=== PATIENT | female | born 1960 | race American Indian/Alaskan Native ===

== ENCOUNTER 2017-05-22 22:15 | Inpatient (IN) | payer OTHER ==
[2017-05-22 23:23] LABS: Basophils % (Auto) 0.3 % (0.0-1.8); Eosinophils % (Auto) 0.4 % (0.0-4.3); Hematocrit 34.5 % (30.3-42.9); Hemoglobin 11.7 gm/dl (10.1-14.3); Mean Corpuscular HGB Conc 34 % (30-34); Mean Corpuscular Hemoglobin 32 pg (28-32); Mean Corpuscular Volume 94 fl (79-97); Platelet Count 239 K/mm3 (140-440); Red Blood Count 3.68 M/mm3 (3.65-5.03); Red Cell Distribution Width 13.2 % (13.2-15.2); White Blood Count 7.6 K/mm3 (4.5-11.0)
[2017-05-22 23:31] LABS: Alanine Aminotransferase 10 units/L (7-56); Albumin 4.2 g/dL (3.9-5); Albumin/Globulin Ratio 1.1 %; Alkaline Phosphatase 86 units/L (35-129); Anion Gap 22 mmol/L; Blood Urea Nitrogen 12 mg/dL (7-17); Calcium 9.3 mg/dL (8.4-10.2); Carbon Dioxide 21 mmol/L (22-30); Chloride 100.9 mmol/L (98-107); Glucose 195 mg/dL (65-100); Lipase 10 units/L (13-60); Potassium 3.9 mmol/L (3.6-5.0); Sodium 140 mmol/L (137-145); Total Protein 8.1 g/dL (6.3-8.2)
[2017-05-22] MEDS ORDERED: NORCO 5/325 PO ONE (23:58)
[2017-05-23 01:16] LABS: Bacteria,Urine 1+ /HPF (Negative); Bilirubin,Urine NEG (Negative); Blood,Urine NEG (Negative); Ketones,Urine 20 mg/dL (Negative); Leukocyte Esterase,Urine NEG (Negative); Mucus,Urine FEW /HPF; Nitrite,Urine NEG (Negative)
[2017-05-23] MEDS ORDERED: NACL ONE (08:01)
[2017-05-23] MEDS ORDERED: NACL 0.9% 1000 ML 1,000 ML IV ONE (09:02)
[2017-05-23] MEDS ORDERED: ZOSYN/NS 4.5GM/100ML 4.5 GM/100 ML VIAL IV ONE (09:02)
[2017-05-23] MEDS ORDERED: ZOFRAN IV ONE (09:02)
[2017-05-23] MEDS ORDERED: DILAUDID IV ONE (09:03)
--- NOTE | 2017-05-23 09:04 | Cat Scan Report ---
CTA CHEST CT ABDOMEN AND PELVIS WITH CONTRAST INDICATION: Chest and abdominal pain. COMPARISON: None similar at this institution. FINDINGS: Chest CTA as also abdomen and pelvis CT performed following intravenous administration of 100 cc of Omnipaque 300. Axial, sagittal, coronal and MIP reconstructions obtained. CHEST: Top normal heart size with silhouette slightly exaggerated due to limited inspiration. No effusion or size significant adenopathy. Patent central airway. No aortic aneurysm or dissection. No suspicious pulmonary arterial filling defects. Small thyroid gland evaluation limited. Slight dependent atelectasis, right greater than left. Nonspecific distal esophageal wall prominence/thickening, not excluded for gastroesophageal reflux and/or hiatal hernia, amongst others. ABDOMEN: Gallbladder distended to approximately 11 cm in length and demonstrates subtle dependent intrinsic densities, suspicious for gallstones. Minimal pericholecystic fluid or wall thickening along the hepatic aspect also noted as on axial image 396, series 2, amongst others. Subtle pericholecystic hepatic hyperperfusion also seen, though no focal suspicious hepatic or splenic lesions or biliary dilatation noted. Right hepatic lobe approximately 19 cm in length. Patent veins. Pancreas, adrenals, aorta, IVC and and kidneys within normal limits. No ascites or size significant adenopathy. Nonopacified GI tract evaluation limited, though grossly nonobstructive. Possibly 2 adjacent diverticuli along the third portion of the duodenum measuring approximately 2 cm each. Normal appendix. Mild transverse colon stool. Fat-containing umbilical hernia with a transverse neck of 1.7 cm. PELVIS: Small calcified uterine fibroids measuring up to 1.3 cm towards the left fundus, axial image 581. Minimal nonspecific nondependent urinary bladder lucency/presumed iatrogenic air, axial image 576. Otherwise unremarkable adnexa/ovaries, urinary bladder and the rectosigmoid. No free fluid or significant adenopathy. Mild multilevel spinal degenerative changes as spurring and lower lumbar facet arthropathy. Mild bilateral SI and hip joint degenerative changes also noted. CONCLUSION: 1. No acute chest CT abnormality or evidence of pulmonary embolism. 2. Distended gallbladder with subtle cholelithiasis and pericholecystic fluid; acute cholecystitis not excluded in an appropriate setting. 3. Various other incidental findings, including distal esophageal prominence and uterine fibroids, amongst others, as above. I phoned the above results to Dr. Marshall in the ER, 8:45 AM, 05/23/2017. Thank you for the opportunity to participate in this patient's care.
--- NOTE | 2017-05-23 09:07 | Emergency Department Report ---
HPI - General Chief Complaint: Abdominal Pain Time Seen by Provider: 05/23/17 08:06 - HPI HPI: This is a 57 year-old female presents to the emergency department with the complaint of lower midsternal chest pain as well as upper abdominal pain has been going on since a few hours prior to presentation, which was last night. At this point the chest pain has resolved but she has more of a generalized abdominal discomfort. She has associated nausea without vomiting. No fever, diarrhea, dysuria, discharge. She has a past medical history of hypertension and hypothyroidism. She tried some Tums for her symptoms without any relief. Her primary care physician is through the [facility]. No recent travel or sick contacts at home. ED Past Medical Hx - Past Medical History Hx Hypertension: Yes Additional medical history: Thyroid disease - Surgical History Past Surgical History?: No - Social History Smoking Status: Never Smoker Substance Use Type: None - Medications Home Medications: Home Medications Medication Instructions Recorded Confirmed Last Taken Type Levothyroxine [Synthroid] 150 mcg PO DAILY 05/23/17 05/23/17 05/22/17 History Losartan [Cozaar] 100 mg PO DAILY 05/23/17 05/23/17 Unknown History ED Review of Systems ROS: Stated complaint: CHEST PAIN/STOMACH PAIN Other details as noted in HPI Comment: All other systems reviewed and negative Constitutional: denies: chills, fever Eyes: denies: eye pain, eye discharge, vision change ENT: denies: ear pain, throat pain Respiratory: denies: cough, shortness of breath, wheezing Cardiovascular: chest pain. denies: palpitations Gastrointestinal: abdominal pain, nausea. denies: vomiting Genitourinary: denies: urgency, dysuria, discharge Musculoskeletal: denies: back pain, joint swelling, arthralgia Skin: denies: rash, lesions Neurological: denies: headache, weakness, paresthesias Physical Exam - Physical Exam Vital Signs: Vital Signs 05/22/17 05/23/17 05/23/17 22:24 00:07 01:07 Temperature 97.8 F Pulse Rate 75 Respiratory 18 20 20 Rate Blood Pressure 173/101 O2 Sat by Pulse 100 Oximetry 05/23/17 05:48 Temperature 99.1 F Pulse Rate 78 Respiratory 18 Rate Blood Pressure 178/94 O2 Sat by Pulse 100 Oximetry Physical Exam: GENERAL: The patient is well-developed well-nourished. HENT: Normocephalic. Atraumatic. Patient has moist mucous membranes. EYES: Extraocular motions are intact. Pupils equal reactive to light bilaterally. NECK: Supple. No meningitic signs are noted. There is no adenopathy noted. CHEST/LUNGS: Clear to auscultation. There is no respiratory distress noted. HEART/CARDIOVASCULAR: Regular. There is no tachycardia. There is no gallop rub or murmur. ABDOMEN: Abdomen is soft. There is tenderness palpation to the upper quadrants of the abdomen. No guarding rebound tenderness. Obese habitus. Patient has normal bowel sounds. There is no abdominal distention. SKIN: Skin is warm and dry. NEURO: The patient is awake, alert, and oriented. The patient is cooperative. The patient has no focal neurologic deficits. The patient has normal speech and gait. MUSCULOSKELETAL: There is no tenderness or deformity. There is no limitation range of motion. There is no evidence of acute injury. ED Course Vital Signs 05/22/17 05/23/17 05/23/17 22:24 00:07 01:07 Temperature 97.8 F Pulse Rate 75 Respiratory 18 20 20 Rate Blood Pressure 173/101 O2 Sat by Pulse 100 Oximetry 05/23/17 05:48 Temperature 99.1 F Pulse Rate 78 Respiratory 18 Rate Blood Pressure 178/94 O2 Sat by Pulse 100 Oximetry - Consultations Consultation #1: I spoke to the general surgeon on-call, Dr. French, who has agreed to see the patient but asked for the patient to be admitted to the hospitalist service secondary to age and other comorbidities. His plan appears to be for surgical intervention tomorrow. 05/23/17 09:07 ED Medical Decision Making - Lab Data Result diagrams: 05/22/17 22:55 05/22/17 22:55 - EKG Data -: EKG Interpreted by [facility] EKG shows normal: sinus rhythm, axis, intervals, QRS complexes, ST-T waves Rate: normal - EKG Data When compared to previous EKG there are: previous EKG unavailable Interpretation: normal EKG - Radiology Data Radiology results: report reviewed CTA CHEST CT ABDOMEN AND PELVIS WITH CONTRAST INDICATION: Chest and abdominal pain. COMPARISON: None similar at this institution. FINDINGS: Chest CTA as also abdomen and pelvis CT performed following intravenous administration of 100 cc of Omnipaque 300. Axial, sagittal, coronal and MIP reconstructions obtained. CHEST: Top normal heart size with silhouette slightly exaggerated due to limited inspiration. No effusion or size significant adenopathy. Patent central airway. No aortic aneurysm or dissection. No suspicious pulmonary arterial filling defects. Small thyroid gland evaluation limited. Slight dependent atelectasis, right greater than left. Nonspecific distal esophageal wall prominence/thickening, not excluded for gastroesophageal reflux and/or hiatal hernia, amongst others. ABDOMEN: Gallbladder distended to approximately 11 cm in length and demonstrates subtle dependent intrinsic densities, suspicious for gallstones. Minimal pericholecystic fluid or wall thickening along the hepatic aspect also noted as on axial image 396, series 2, amongst others. Subtle pericholecystic hepatic hyperperfusion also seen, though no focal suspicious hepatic or splenic lesions or biliary dilatation noted. Right hepatic lobe approximately 19 cm in length. Patent veins. Pancreas, adrenals, aorta, IVC and and kidneys within normal limits. No ascites or size significant adenopathy. Nonopacified GI tract evaluation limited, though grossly nonobstructive. Possibly 2 adjacent diverticuli along the third portion of the duodenum measuring approximately 2 cm each. Normal appendix. Mild transverse colon stool. Fat-containing umbilical hernia with a transverse neck of 1.7 cm. PELVIS: Small calcified uterine fibroids measuring up to 1.3 cm towards the left fundus, axial image 581. Minimal nonspecific nondependent urinary bladder lucency/presumed iatrogenic air, axial image 576. Otherwise unremarkable adnexa/ovaries, urinary bladder and the rectosigmoid. No free fluid or significant adenopathy. Mild multilevel spinal degenerative changes as spurring and lower lumbar facet arthropathy. Mild bilateral SI and hip joint degenerative changes also noted. CONCLUSION: 1. No acute chest CT abnormality or evidence of pulmonary embolism. 2. Distended gallbladder with subtle cholelithiasis and pericholecystic fluid; acute cholecystitis not excluded in an appropriate setting. 3. Various other incidental findings, including distal esophageal prominence and uterine fibroids, amongst others, as above. - Medical Decision Making 57-year-old female presents with some chest discomfort and abdominal pain. Chest discomfort has resolved but patient still has upper abdominal discomfort and nausea without vomiting. Labs are mostly unremarkable. However the patient had a CT angiography and CT of the abdomen and pelvis, ordered through triage, that resulted as concern for acute cholecystitis. General surgery was contacted and will see the patient has a consultation and most likely take her for a cholecystectomy tomorrow. She was admitted by the hospitalist service. - Differential Diagnosis cholecystitis, cholelithiasis, pancreatitis, hepatitis, CT, GERD Critical Care Time: No Critical care attestation.: If time is entered above; I have spent that time in minutes in the direct care of this critically ill patient, excluding procedure time. ED Disposition Clinical Impression: Cholecystitis Hypertension Qualifiers: Hypertension type: essential hypertension Qualified Code(s): I10 - Essential ( primary) hypertension Chest pain Qualifiers: Chest pain type: unspecified Qualified Code(s): R07.9 - Chest pain, unspecified Abdominal pain Qualifiers: Abdominal location: generalized Qualified Code(s): R10.84 - Generalized abdominal pain Disposition: DC-09 OP ADMIT IP TO THIS HOSP Is pt being admited?: Yes Condition: Stable Time of Disposition: 13:05
--- NOTE | 2017-05-23 09:11 | Admit Criteria Form ---
Admission Criteria Documentation: ABDOMINAL PAIN Clinical Indications for Admission to Inpatient Care ( [place]/check or initial the applicable condition/criteria): Admission is indicated for ANY ONE of the following (1)(2)(3)(4)(5)(6): [ ]I. Surgery needed that cannot be performed on ambulatory basis [ ]II. Peritoneal signs present (eg, rebound tenderness, rigidity) [ ]III. Evaluation requires patient to not eat or drink for extended period ( eg, more than 24 hours). [ X]IV. Inpatient admission required[B] rather than observation care (see Abdominal Pain: Observation Care guideline as appropriate) because of ANY ONE of the following(7)(8)(9): [ ] a) Hemodynamic instability [ ]b) Severe pain requiring acute inpatient management [X ]c) Identification of etiology or finding that requires inpatient care (eg, aortic dissection, free air,bowel ischemia)(10) [ ]d) Absent bowel sounds with complete ileus (11) [ ]e) Signs of intestinal obstruction[C] [ ]f) Suspected toxic megacolon [ ]g) Severe electrolyte abnormalities requiring inpatient care [ ]h) High fever or infection requiring inpatient admission as indicated by ANY ONE of the following (12)(13): [ ]i) Appropriate outpatient or observation care antimicrobial treatment unavailable, not effective, or not feasible [ ]ii) Documented bacteremia [ ]iii) Temperature greater than 104.9 degrees F (40.5 degrees C) (oral) [ ]iv) Temperature greater than 103.1 degrees F (39.5 degrees C) ( oral) or less than 96.8 degrees F (36 degrees C) (rectal) that does not respond to all emergency treatment measures [ ]i) IV fluid required rather than oral rehydration to replace significant ongoing (eg, for greater than 24 hours) losses (greater than 3 L/m2 per day)(14)(15) [ ]j) Percutaneous or open drainage (eg, abscess, biliary tract) procedures [ ]k) Parenteral nutrition regimen that must be implemented on inpatient basis [ ]l) Other condition, treatment, or monitoring requiring inpatient admission Extended stay beyond goal length of stay may be needed for (1)(3)(4)(10)(16): [ ]a) Surgery (e.g., colectomy, revascularization procedure) [ ]b) Persistent abdominal pain with suspected intra-abdominal process [ ]c) Diagnosed condition requiring continued stay (e.g., pancreatitis, complicated diverticulitis) The original [facility] [employer] content created by [facility] has been revised. The portions of the content which have been revised are identified through the use of italic text or in bold, and [facility] has neither reviewed nor approved the modified material.All other unmodified content is copyright [facility]. Please see references footnoted in the original [facility] edition 2017 Admission Criteria Met: Yes
[2017-05-23] MEDS ORDERED: TYLENOL PO PRN (09:19)
[2017-05-23] MEDS ORDERED: DULCOLAX PR PRN (10:00)
--- NOTE | 2017-05-23 10:37 | History and Physical Report ---
History of Present Illness Date of examination: 05/23/17 Date of admission: 05/23/17 09:19 Chief complaint: Abdominal pain History of present illness: This is a 57 year-old female with past medical history of hypertension and hypothyroidism who presents to the emergency department with the complaint of left upper abdominal pain since last night. She began having intermittent abdominal pain that initially felt like gas pains but it has now progressed to being nearly constant. Since yesterday she has had severe nausea and has had 4 episodes of bilious vomiting despite not having taken anything by mouth in over 24 hours. Her last bowel movement was over three days ago. Initially, when she would eat the pain would increase but she has not eaten anything for over 24 hours. Vomiting is the only thing that seems to provide some minimal relief. Currently, the pain is described as a constant dull, diffuse pain that intermittently becomes sharp and well localized. The sharp pain tends to occur in different locations at different times. The intensity of the pain has been increasing since this morning and on pain scale she now rates the pain at 10 out of 10. She tried some Tums for her symptoms without any relief. She denies a recent history of fever, jaundice, pruritis, diarrhea, hemoptysis, melena, or hematochezia. She denies a known history of hemorrhoids, diverticulitis, colon cancer, peptic ulcer disease, gastritis, acid reflux, gall bladder disease or cholelithiasis. She denies a history of smoking or alcohol consumption. PMH: Hypertension. History of benign ovarian cyst. No history of colon cancer, diabetes, Past History Past Medical History: GERD, hypertension, hypothyroidism Past Surgical History: No surgical history Social history: denies: smoking, alcohol abuse Family history: CAD, hypertension Medications and Allergies Allergies Allergy/AdvReac Type Severity Reaction Status Date / Time No Known Allergies Allergy Unverified 05/22/17 22:24 Home Medications Medication Instructions Recorded Confirmed Last Taken Type Levothyroxine [Synthroid] 150 mcg PO DAILY 05/23/17 05/23/17 05/22/17 History Losartan [Cozaar] 100 mg PO DAILY 05/23/17 05/23/17 Unknown History Active Meds: Active Medications Acetaminophen (Tylenol) 650 mg PO Q4H PRN PRN Reason: Pain MILD(1-3)/Fever >100.5/ZAMORA Bisacodyl (Dulcolax) 10 mg [place] QDAY PRN PRN Reason: Constipation unrelieved by MOM Enoxaparin Sodium (Lovenox) 40 mg SUB-Q QDAY KRISHNA Sodium Chloride (Nacl 0.9% 1000 Ml) 1,000 mls @ 75 mls/hr IV DIRECT KRISHNA Piperacillin Sod/Tazobactam Sod (Zosyn/Ns 4.5gm/100ml) 4.5 gm in 100 mls @ 200 mls/hr IV Q6H KRISHNA Morphine Sulfate (Morphine) 2 mg IV Q4H PRN PRN Reason: Pain, Moderate (4-6) Review of Systems Constitutional: no weight loss, no weight gain, no fever, no chills, no sweats Ears, nose, mouth and throat: no ear pain, no ear discharge, no tinnitis, no decreased hearing, no nose pain Breasts: no change in shape, no swelling Cardiovascular: no chest pain, no orthopnea, no palpitations, no rapid/ irregular heart beat, no edema Respiratory: no cough, no cough with sputum, no excessive sputum, no hemoptysis Gastrointestinal: nausea, vomiting, no diarrhea, no constipation, no hematemesis , no coffee ground emesis, no melena, no hematochezia Genitourinary Female: no dysmenorrhea, no pelvic pain, no flank pain, no menorrhagia Menstruation: no currently menstrual, no premenarcheal, no post hysterectomy, no ammenorrhea, no ammenorrhea on BC Rectal: no pain, no incontinence, no bleeding Integumentary: no rash, no pruritis, no redness Neurological: no head injury, no transient paralysis, no paralysis, no weakness , no parathesias, no numbness, no tingling, no seizures Psychiatric: no memory loss, no change in sleep habits, no sleep disturbances Endocrine: no cold intolerance, no heat intolerance, no polyphagia, no excessive thirst, no polydipsia Hematologic/Lymphatic: no easy bruising, no easy bleeding Allergic/Immunologic: no urticaria, no allergic rhinitis Exam - Constitutional Vitals: Temp Pulse Resp BP Pulse Ox 98.8 F 86 21 192/102 98 05/23/17 09:00 05/23/17 09:15 05/23/17 09:15 05/23/17 09:15 05/23/17 09:15 General appearance: Present: no acute distress - EENT Eyes: Present: PERRL ENT: hearing intact - Neck Neck: Present: supple - Respiratory Respiratory effort: normal Respiratory: bilateral: CTA - Cardiovascular Heart rate: 72 Rhythm: regular Heart Sounds: Present: S1 & S2 - Extremities Extremities: no ischemia Peripheral Pulses: within normal limits - Abdominal General gastrointestinal: Present: soft, tender Localized gastrointestinal: guarding: LUQ, LLQ Female genitourinary: Present: deferred - Rectal Rectal Exam: deferred - Integumentary Integumentary: Present: clear, warm, dry - Musculoskeletal Musculoskeletal: strength equal bilaterally - Psychiatric Psychiatric: appropriate mood/affect - Neurologic Neurologic: CNII-XII intact - Allied Health Allied health notes reviewed: nursing Results - Labs CBC & Chem 7: 05/22/17 22:55 05/22/17 22:55 Labs: Laboratory Last Values WBC 7.6 K/mm3 (4.5-11.0) 05/22/17 22:55 RBC 3.68 M/mm3 (3.65-5.03) 05/22/17 22:55 Hgb 11.7 gm/dl (10.1-14.3) 05/22/17 22:55 Hct 34.5 % (30.3-42.9) 05/22/17 22:55 MCV 94 fl (79-97) 05/22/17 22:55 MCH 32 pg (28-32) 05/22/17 22:55 MCHC 34 % (30-34) 05/22/17 22:55 RDW 13.2 % (13.2-15.2) 05/22/17 22:55 Plt Count 239 K/mm3 (140-440) 05/22/17 22:55 Lymph % (Auto) 17.3 % (13.4-35.0) 05/22/17 22:55 [place] % (Auto) 4.9 % (0.0-7.3) 05/22/17 22:55 Eos % (Auto) 0.4 % (0.0-4.3) 05/22/17 22:55 Baso % (Auto) 0.3 % (0.0-1.8) 05/22/17 22:55 Lymph # 1.3 K/mm3 (1.2-5.4) 05/22/17 22:55 [place] # 0.4 K/mm3 (0.0-0.8) 05/22/17 22:55 Eos # 0.0 K/mm3 (0.0-0.4) 05/22/17 22:55 Baso # 0.0 K/mm3 (0.0-0.1) 05/22/17 22:55 Seg Neutrophils % 77.1 % (40.0-70.0) H 05/22/17 22:55 Seg Neutrophils # 5.8 K/mm3 (1.8-7.7) 05/22/17 22:55 Sodium 140 mmol/L (137-145) 05/22/17 22:55 Potassium 3.9 mmol/L (3.6-5.0) 05/22/17 22:55 Chloride 100.9 mmol/L (98-107) 05/22/17 22:55 Carbon Dioxide 21 mmol/L (22-30) L 05/22/17 22:55 Anion Gap 22 mmol/L 05/22/17 22:55 BUN 12 mg/dL (7-17) 05/22/17 22:55 Creatinine 0.8 mg/dL (0.7-1.2) 05/22/17 22:55 Estimated GFR > 60 ml/min 05/22/17 22:55 BUN/Creatinine Ratio 15.00 % 05/22/17 22:55 Glucose 195 mg/dL (65-100) H 05/22/17 22:55 Calcium 9.3 mg/dL (8.4-10.2) 05/22/17 22:55 Total Bilirubin 0.60 mg/dL (0.1-1.2) 05/22/17 22:55 AST 11 units/L (5-40) 05/22/17 22:55 ALT 10 units/L (7-56) 05/22/17 22:55 Alkaline Phosphatase 86 units/L (35-129) 05/22/17 22:55 Troponin T < 0.010 ng/mL (0.00-0.029) 05/22/17 22:55 Total Protein 8.1 g/dL (6.3-8.2) 05/22/17 22:55 Albumin 4.2 g/dL (3.9-5) 05/22/17 22:55 Albumin/Globulin Ratio 1.1 % 05/22/17 22:55 Lipase 10 units/L (13-60) L 05/22/17 22:55 Urine Color Yellow (Yellow) 05/23/17 00:45 Urine Turbidity Clear (Clear) 05/23/17 00:45 Urine pH 6.0 (5.0-7.0) 05/23/17 00:45 Ur Specific [place] 1.024 (1.003-1.030) 05/23/17 00:45 Urine Protein 30 mg/dl mg/dL (Negative) 05/23/17 00:45 Urine Glucose (UA) 50 mg/dL (Negative) 05/23/17 00:45 Urine Ketones 20 mg/dL (Negative) 05/23/17 00:45 Urine Blood Neg (Negative) 05/23/17 00:45 Urine Nitrite Neg (Negative) 05/23/17 00:45 Urine Bilirubin Neg (Negative) 05/23/17 00:45 Urine Urobilinogen 2.0 mg/dL (<2.0) 05/23/17 00:45 Ur Leukocyte Esterase Neg (Negative) 05/23/17 00:45 Urine WBC (Auto) 1.0 /HPF (0.0-6.0) 05/23/17 00:45 Urine RBC (Auto) 2.0 /HPF (0.0-6.0) 05/23/17 00:45 U Epithel Cells (Auto) 2.0 /HPF (0-13.0) 05/23/17 00:45 Urine Bacteria (Auto) 1+ /HPF (Negative) 05/23/17 00:45 Urine Mucus Few /HPF 05/23/17 00:45 - Imaging and Cardiology CT scan - abdomen: image reviewed (Distended gallbladder with subtle cholelithiasis and pericholecystic fluid. distal esophageal prominence and uterine fibroids ) CT scan - chest: image reviewed (No evidence of pulmonary embolism) Assessment and Plan Assessment and plan: Acute H Cholelithiasis CT of the Abdomen/ pelvic shows Distended gallbladder with subtle cholelithiasis and pericholecystic fluid. distal esophageal prominence and uterine fibroids Nothing by mouth IV fluid hydration Stated on Empiric treatment of IV Zosyn Surgery consulted Accelerated hypertension Resume home antihypertensive IV Hydralazine for SBP >160 Hypothyroidism Resume Synthroid Prophylaxis Lovenox Advance Directives: Yes (Full Code ) VTE prophylaxis?: Chemical Contraindication Mechanical VTE Prophylaxis: Treatment Not Indicated Plan of care discussed with patient/family: Yes
[2017-05-23] MEDS ORDERED: APRESOLINE IV PRN ×2 (10:42→11:28)
[2017-05-23] MEDS ORDERED: APRESOLINE ONE (10:44)
[2017-05-23] MEDS: MORPHINE IV PRN ×2 (11:38→15:56)
[2017-05-23] MEDS: LOVENOX SUB-Q SCH (11:39)
[2017-05-23] MEDS: ZOFRAN IV PRN ×2 (11:46→15:56)
--- NOTE | 2017-05-23 15:50 | Nuclear Medicine Report ---
HEPATOBILIARY SCAN: History: Gallstones, right upper quadrant pain. Following the injection of the radionuclide, serial scanning was obtained over the right upper quadrant. Initial imaging of the liver demonstrates a relatively normal activity pattern. There is nonvisualization of the gallbladder out to 2 hours. There is normal visualization of the central biliary ducts, common bile duct and small bowel loops. IMPRESSION: Findings are consistent with acute cholecystitis.
[2017-05-23] MEDS: ZOSYN/NS 4.5GM/100ML 4.5 GM/100 ML VIAL IV SCH ×2 (17:06→22:06)
[2017-05-24] MEDS: MORPHINE IV PRN (01:33)
[2017-05-24] MEDS: ZOFRAN IV PRN (01:37)
[2017-05-24] MEDS: ZOSYN/NS 4.5GM/100ML 4.5 GM/100 ML VIAL IV SCH ×4 (04:13→21:56)
[2017-05-24] MEDS: NACL 0.9% 1000 ML 1,000 ML IV SCH ×2 (04:14→21:57)
--- NOTE | 2017-05-24 08:50 | Progress Note ---
Assessment and Plan Assessment and plan: Acute cholecystitis Patient is planned for cholecystectomy today at noon. CT of the Abdomen/ pelvic shows Distended gallbladder with subtle cholelithiasis and pericholecystic fluid. HIDA scan also with findings consistent with cholecystitis. Cont. NPO status IV fluid hydration Continue IV Zosyn Surgery consulted Accelerated hypertension Resume home antihypertensive after surgery IV Hydralazine for SBP >160 Hypothyroidism Resume Synthroid DVT Prophylaxis Lovenox History Interval history: Patient still complains of abdominal pain. Hospitalist Physical - Constitutional Vitals: Temp Pulse Resp BP Pulse Ox 100 F H 89 20 164/89 100 05/24/17 07:00 05/24/17 07:00 05/24/17 07:00 05/24/17 07:00 05/24/17 07:00 General appearance: Present: no acute distress - EENT Eyes: Present: PERRL, EOM intact ENT: hearing intact, clear oral mucosa, dentition normal - Neck Neck: Present: supple, normal ROM - Respiratory Respiratory effort: normal Respiratory: bilateral: CTA - Cardiovascular Rhythm: regular Heart Sounds: Present: S1 & S2. Absent: gallop, rub - Extremities Extremities: no ischemia, No edema, Full ROM - Abdominal General gastrointestinal: soft, tender, non-distended, normal bowel sounds Localized gastrointestinal: tender: diffuse, RUQ - Integumentary Integumentary: Present: clear, warm, dry - Neurologic Neurologic: CNII-XII intact, moves all extremities Results - Labs CBC & Chem 7: 05/22/17 22:55 05/22/17 22:55 Labs: Laboratory Last Values WBC 7.6 K/mm3 (4.5-11.0) 05/22/17 22:55 RBC 3.68 M/mm3 (3.65-5.03) 05/22/17 22:55 Hgb 11.7 gm/dl (10.1-14.3) 05/22/17 22:55 Hct 34.5 % (30.3-42.9) 05/22/17 22:55 MCV 94 fl (79-97) 05/22/17 22:55 MCH 32 pg (28-32) 05/22/17 22:55 MCHC 34 % (30-34) 05/22/17 22:55 RDW 13.2 % (13.2-15.2) 05/22/17 22:55 Plt Count 239 K/mm3 (140-440) 05/22/17 22:55 Lymph % (Auto) 17.3 % (13.4-35.0) 05/22/17 22:55 [place] % (Auto) 4.9 % (0.0-7.3) 05/22/17 22:55 Eos % (Auto) 0.4 % (0.0-4.3) 05/22/17 22:55 Baso % (Auto) 0.3 % (0.0-1.8) 05/22/17 22:55 Lymph # 1.3 K/mm3 (1.2-5.4) 05/22/17 22:55 [place] # 0.4 K/mm3 (0.0-0.8) 05/22/17 22:55 Eos # 0.0 K/mm3 (0.0-0.4) 05/22/17 22:55 Baso # 0.0 K/mm3 (0.0-0.1) 05/22/17 22:55 Seg Neutrophils % 77.1 % (40.0-70.0) H 05/22/17 22:55 Seg Neutrophils # 5.8 K/mm3 (1.8-7.7) 05/22/17 22:55 Sodium 140 mmol/L (137-145) 05/22/17 22:55 Potassium 3.9 mmol/L (3.6-5.0) 05/22/17 22:55 Chloride 100.9 mmol/L (98-107) 05/22/17 22:55 Carbon Dioxide 21 mmol/L (22-30) L 05/22/17 22:55 Anion Gap 22 mmol/L 05/22/17 22:55 BUN 12 mg/dL (7-17) 05/22/17 22:55 Creatinine 0.8 mg/dL (0.7-1.2) 05/22/17 22:55 Estimated GFR > 60 ml/min 05/22/17 22:55 BUN/Creatinine Ratio 15.00 % 05/22/17 22:55 Glucose 195 mg/dL (65-100) H 05/22/17 22:55 Calcium 9.3 mg/dL (8.4-10.2) 05/22/17 22:55 Total Bilirubin 0.60 mg/dL (0.1-1.2) 05/22/17 22:55 AST 11 units/L (5-40) 05/22/17 22:55 ALT 10 units/L (7-56) 05/22/17 22:55 Alkaline Phosphatase 86 units/L (35-129) 05/22/17 22:55 Troponin T < 0.010 ng/mL (0.00-0.029) 05/22/17 22:55 Total Protein 8.1 g/dL (6.3-8.2) 05/22/17 22:55 Albumin 4.2 g/dL (3.9-5) 05/22/17 22:55 Albumin/Globulin Ratio 1.1 % 05/22/17 22:55 Lipase 10 units/L (13-60) L 05/22/17 22:55 Urine Color Yellow (Yellow) 05/23/17 00:45 Urine Turbidity Clear (Clear) 05/23/17 00:45 Urine pH 6.0 (5.0-7.0) 05/23/17 00:45 Ur Specific [place] 1.024 (1.003-1.030) 05/23/17 00:45 Urine Protein 30 mg/dl mg/dL (Negative) 05/23/17 00:45 Urine Glucose (UA) 50 mg/dL (Negative) 05/23/17 00:45 Urine Ketones 20 mg/dL (Negative) 05/23/17 00:45 Urine Blood Neg (Negative) 05/23/17 00:45 Urine Nitrite Neg (Negative) 05/23/17 00:45 Urine Bilirubin Neg (Negative) 05/23/17 00:45 Urine Urobilinogen 2.0 mg/dL (<2.0) 05/23/17 00:45 Ur Leukocyte Esterase Neg (Negative) 05/23/17 00:45 Urine WBC (Auto) 1.0 /HPF (0.0-6.0) 05/23/17 00:45 Urine RBC (Auto) 2.0 /HPF (0.0-6.0) 05/23/17 00:45 U Epithel Cells (Auto) 2.0 /HPF (0-13.0) 05/23/17 00:45 Urine Bacteria (Auto) 1+ /HPF (Negative) 05/23/17 00:45 Urine Mucus Few /HPF 05/23/17 00:45
[2017-05-24] MEDS: SYNTHROID PO SCH (09:40)
[2017-05-24] MEDS: COZAAR PO SCH (09:41)
[2017-05-24] MEDS: LOVENOX SUB-Q SCH (09:41)
[2017-05-24] MEDS ORDERED: NON-FORMULARY (Losartan [Cozaar] 100 MG) PO SCH (10:00)
[2017-05-24 11:04] LABS: Albumin 3.4 g/dL (3.9-5); Albumin/Globulin Ratio 0.9 %; Bilirubin,Direct 0.4 mg/dL (0-0.2); Bilirubin,Indirect 0.7 mg/dL; Bilirubin,Total 1.1 mg/dL (0.1-1.2); Total Protein 7.2 g/dL (6.3-8.2)
--- NOTE | 2017-05-24 14:56 | Anesthesia Consultation ---
Anesthesia Consult and Med Hx Date of service: 05/24/17 - Airway Anesthetic Teeth Evaluation: Good ROM Head & Neck: Adequate Mental/Hyoid Distance: Adequate Mallampati Class: Class II Intubation Access Assessment: Good - Pulmonary Exam CTA: Yes - Cardiac Exam Cardiac Exam: No Murmur - Pre-Operative Health Status ASA Pre-Surgery Classification: ASA3 Proposed Anesthetic Plan: General - Pulmonary Hx Smoking: No Hx Pneumonia: No - Cardiovascular System Hx Hypertension: Yes - Central Nervous System Hx Psychiatric Problems: No - Endocrine Hx Hypothyroidism: Yes
--- NOTE | 2017-05-24 14:57 | Anesthesia Day of Surgery ---
Anesthesia Day of Surgery - Day of Surgery Patient Examined: Yes Patient H&P Reviewed: Yes Patient is NPO: Yes
[2017-05-24] MEDS ORDERED: PEPCID PO NR (15:00)
[2017-05-24] MEDS ORDERED: VERSED IV NR (15:00)
[2017-05-24] MEDS ORDERED: XYLOCAINE MPF 2% ONE (16:26)
[2017-05-24] MEDS ORDERED: ZEMURON IV ONE (16:26)
[2017-05-24] MEDS ORDERED: DILAUDID ONE (16:27)
[2017-05-24] MEDS ORDERED: DIPRIVAN 10 MG/ML IV ONE (16:27)
[2017-05-24] MEDS ORDERED: MARCAINE 0.5% 30 ML INFILTRATI ONE (16:52)
[2017-05-24] MEDS ORDERED: NEO SYNEPHRINE/NS Syringe(OR USE) IV ONE (17:00)
[2017-05-24] MEDS ORDERED: NEOSTIGMINE ONE (17:14)
[2017-05-24] MEDS ORDERED: ZOFRAN ONE (17:14)
[2017-05-24] MEDS ORDERED: DECADRON ONE (17:14)
[2017-05-24] MEDS ORDERED: ROBINUL ONE ×2 (17:14→17:40)
[2017-05-24] MEDS ORDERED: NACL 0.9% IR ONE ×2 (17:53)
[2017-05-24] MEDS ORDERED: MARCAINE 0.5% INFILTRATI ONE (17:53)
--- NOTE | 2017-05-24 18:26 | Post Anesthesia Evaluation ---
- Post Anesthesia Evaluation Patient Participated: Yes Airway Patent: Yes Stable Respiratory Function: Yes Nausea/Vomiting: No Temp > 96.8F: Yes Pain Manageable: Yes Adequeate Hydration: Yes Anesthesia Complications: No
[2017-05-24] MEDS: DILAUDID IV PRN ×3 (18:51→20:35)
--- NOTE | 2017-05-24 22:39 | Operative Report ---
PREOPERATIVE DIAGNOSIS: Acute cholecystitis. POSTOPERATIVE DIAGNOSIS: Acute cholecystitis, pregangrenous. SURGERY: Cholecystectomy, laparoscopic. ANESTHESIA: General. BLOOD LOSS: About 100 mL. FINDINGS: The patient had a very large gallbladder with thickened wall, edematous and may be some areas of gangrene at the level of the infundibulum. I was able to isolate and see both cystic artery and cystic duct. We took picture of these, after transected them. EMPLOYEE OPERATIONS EXAMINER: Mr. Misael Yeung. DESCRIPTION OF PROCEDURE: With the patient in supine position and prepped and draped in usual fashion, I made a small incision in the right upper quadrant under local anesthesia, then a Veress needle was inserted and insufflated the abdominal cavity up to pressure of 15 for which #5 trocar. With use of local anesthesia, I was able to introduce one more #5 trocar in the right upper abdomen, #5 in the infraumbilical area, and #10 in the mid upper epigastrium. At that point, we were able to see the area and the gallbladder was very boggy and large. I had to decompress it. I got about 35 mL out of it. Then, it was held from its fundus and slowly dissecting all the way to the infundibulum, at which point another grasper was applied. I was able to isolate both cystic duct and the cystic artery at that point, these were endoclipped x 4, transected, and then the gallbladder was removed in toto using electrocautery. We were very much satisfied, bleeding was handled with the use of electrocautery. I left a drain because of the edematous nature of the gallbladder and evidence of severe inflammation into the area after installing Radha I had good hemostasis. Then, all the trocars were removed one by one closing the fascia with the use of #0 Vicryl and silk stitch around the drain and 4-0 for the skin. Bandages were applied. The patient was then transferred to the recovery room in good condition. JOB# [id number] DEYVI/ROMERO
[2017-05-25] MEDS: DILAUDID IV PRN (03:36)
[2017-05-25] MEDS: ZOSYN/NS 4.5GM/100ML 4.5 GM/100 ML VIAL IV SCH ×2 (03:37→09:36)
[2017-05-25 04:18] LABS: Hematocrit 34.8 % (30.3-42.9); Hemoglobin 11.6 gm/dl (10.1-14.3); Mean Corpuscular HGB Conc 33 % (30-34); Mean Corpuscular Hemoglobin 32 pg (28-32); Mean Corpuscular Volume 95 fl (79-97); Platelet Count 220 K/mm3 (140-440); Red Blood Count 3.66 M/mm3 (3.65-5.03); Red Cell Distribution Width 13.3 % (13.2-15.2); White Blood Count 15.7 K/mm3 (4.5-11.0)
[2017-05-25 04:25] LABS: Anion Gap 18 mmol/L; BUN/Creatinine Ratio 14.44; Blood Urea Nitrogen 13 mg/dL (7-17); Calcium 8.3 mg/dL (8.4-10.2); Carbon Dioxide 22 mmol/L (22-30); Glucose 159 mg/dL (65-100); Potassium 3.8 mmol/L (3.6-5.0); Sodium 136 mmol/L (137-145)
[2017-05-25 05:57] LABS: Basophils % (Manual) 0 % (0.0-1.8); Blastocytes % (Manual) 0 %; Eosinophils % (Manual) 0 % (0.0-4.3)
[2017-05-25 05:58] LABS: Anisocytosis 1+; Diff Status Complete; Platelet Estimate Consistent w Auto
[2017-05-25 08:13] LABS: Hematocrit 33.5 % (30.3-42.9); Hemoglobin 11.5 gm/dl (10.1-14.3); Mean Corpuscular HGB Conc 34 % (30-34); Mean Corpuscular Hemoglobin 32 pg (28-32); Mean Corpuscular Volume 94 fl (79-97); Platelet Count 214 K/mm3 (140-440); Red Blood Count 3.58 M/mm3 (3.65-5.03); Red Cell Distribution Width 13.3 % (13.2-15.2); White Blood Count 14.8 K/mm3 (4.5-11.0)
[2017-05-25] MEDS: MORPHINE IV PRN (09:33)
[2017-05-25] MEDS: COZAAR PO SCH (09:35)
[2017-05-25] MEDS: SYNTHROID PO SCH (09:35)
[2017-05-25] MEDS: LOVENOX SUB-Q SCH (09:36)
[2017-05-25] MEDS ORDERED: MILK OF MAGNESIA PO ONE (10:00)
[2017-05-25 16:07] VITALS: BP 117/74
--- NOTE | 2017-05-25 18:33 | Progress Note ---
Assessment and Plan Assessment and plan: 1. Acute cholecystitis CT abdomen/pelvis showed distended Bladder with subtle cholelithiasis and pericholecystic fluid HIDA scan also with findings consistent with cholelithiasis Status post laparoscopic cholecystectomy 05/24 Start clear liquid diet Plan to discontinue antibiotics 2. Hypertension Home antihypertensive (losartan) resumed after surgery PRN IV Hydralazine for SBP >160 Monitor BP and adjust regimen as needed 3. Hypothyroidism Continue Synthroid 4. Obesity Counseled regarding importance of losing weight and lifestyle changes 5. DVT Prophylaxis Lovenox History Interval history: s/p cholecystectomy; doing well, still complaining of some upper quadrant pain, but no nausea or vomiting Hospitalist Physical - Constitutional Vitals: Temp Pulse Resp BP Pulse Ox 99.0 F 111 H 20 117/74 98 05/25/17 15:45 05/25/17 15:45 05/25/17 15:45 05/25/17 15:45 05/25/17 03:35 General appearance: Present: no acute distress, obese - EENT Eyes: Present: PERRL, EOM intact. Absent: scleral icterus, conjunctival injection - Neck Neck: Present: supple, normal ROM. Absent: masses or JVD - Respiratory Respiratory effort: normal Respiratory: bilateral: CTA, negative: rhonchi, wheezing - Cardiovascular Rhythm: regular Heart Sounds: Present: S1 & S2. Absent: systolic murmur - Extremities Extremities: no ischemia - Abdominal General gastrointestinal: soft, tender, non-distended, hypoactive bowel sounds Localized gastrointestinal: tender: RUQ - Psychiatric Psychiatric: appropriate mood/affect, intact judgment & insight, cooperative - Neurologic Neurologic: CNII-XII intact, no focal deficits Results - Labs CBC & Chem 7: 05/25/17 07:34 05/25/17 03:31 Labs: Laboratory Last Values WBC 14.8 K/mm3 (4.5-11.0) H 05/25/17 07:34 RBC 3.58 M/mm3 (3.65-5.03) L 05/25/17 07:34 Hgb 11.5 gm/dl (10.1-14.3) 05/25/17 07:34 Hct 33.5 % (30.3-42.9) 05/25/17 07:34 MCV 94 fl (79-97) 05/25/17 07:34 MCH 32 pg (28-32) 05/25/17 07:34 MCHC 34 % (30-34) 05/25/17 07:34 RDW 13.3 % (13.2-15.2) 05/25/17 07:34 Plt Count 214 K/mm3 (140-440) 05/25/17 07:34 Lymph % (Auto) 17.3 % (13.4-35.0) 05/22/17 22:55 [place] % (Auto) 4.9 % (0.0-7.3) 05/22/17 22:55 Eos % (Auto) 0.4 % (0.0-4.3) 05/22/17 22:55 Baso % (Auto) 0.3 % (0.0-1.8) 05/22/17 22:55 Lymph # 1.3 K/mm3 (1.2-5.4) 05/22/17 22:55 [place] # 0.4 K/mm3 (0.0-0.8) 05/22/17 22:55 Eos # 0.0 K/mm3 (0.0-0.4) 05/22/17 22:55 Baso # 0.0 K/mm3 (0.0-0.1) 05/22/17 22:55 Add Manual Diff Complete 05/25/17 03:31 Total Counted 100 05/25/17 03:31 Seg Neutrophils % Steam Brush Operator 05/25/17 03:31 Seg Neuts % (Manual) 95.0 % (40.0-70.0) H 05/25/17 03:31 Band Neutrophils % 0 % 05/25/17 03:31 Lymphocytes % (Manual) 2.0 % (13.4-35.0) L 05/25/17 03:31 Reactive Lymphs % (Man) 0 % 05/25/17 03:31 Monocytes % (Manual) 3.0 % (0.0-7.3) 05/25/17 03:31 Eosinophils % (Manual) 0 % (0.0-4.3) 05/25/17 03:31 Basophils % (Manual) 0 % (0.0-1.8) 05/25/17 03:31 Metamyelocytes % 0 % 05/25/17 03:31 Myelocytes % 0 % 05/25/17 03:31 Promyelocytes % 0 % 05/25/17 03:31 Blast Cells % 0 % 05/25/17 03:31 Nucleated RBC % Not Reportable 05/25/17 03:31 Seg Neutrophils # 5.8 K/mm3 (1.8-7.7) 05/22/17 22:55 Seg Neutrophils # Man 14.9 K/mm3 (1.8-7.7) H 05/25/17 03:31 Band Neutrophils # 0.0 K/mm3 05/25/17 03:31 Lymphocytes # (Manual) 0.3 K/mm3 (1.2-5.4) L 05/25/17 03:31 Abs React Lymphs (Man) 0.0 K/mm3 05/25/17 03:31 Monocytes # (Manual) 0.5 K/mm3 (0.0-0.8) 05/25/17 03:31 Eosinophils # (Manual) 0.0 K/mm3 (0.0-0.4) 05/25/17 03:31 Basophils # (Manual) 0.0 K/mm3 (0.0-0.1) 05/25/17 03:31 Metamyelocytes # 0.0 K/mm3 05/25/17 03:31 Myelocytes # 0.0 K/mm3 05/25/17 03:31 Promyelocytes # 0.0 K/mm3 05/25/17 03:31 Blast Cells # 0.0 K/mm3 05/25/17 03:31 WBC Morphology Not Reportable 05/25/17 03:31 Hypersegmented Neuts Not Reportable 05/25/17 03:31 Hyposegmented Neuts Not Reportable 05/25/17 03:31 Hypogranular Neuts Not Reportable 05/25/17 03:31 Smudge Cells Not Reportable 05/25/17 03:31 Toxic Granulation Not Reportable 05/25/17 03:31 Toxic Vacuolation Not Reportable 05/25/17 03:31 Dohle Bodies Not Reportable 05/25/17 03:31 Pelger-Huet Anomaly Not Reportable 05/25/17 03:31 Hammad Rods Not Reportable 05/25/17 03:31 Platelet Estimate Consistent w auto 05/25/17 03:31 Clumped Platelets Not Reportable 05/25/17 03:31 Plt Clumps, EDTA Not Reportable 05/25/17 03:31 Large Platelets Not Reportable 05/25/17 03:31 Giant Platelets Not Reportable 05/25/17 03:31 Platelet Satelliting Not Reportable 05/25/17 03:31 Plt Morphology Comment Not Reportable 05/25/17 03:31 RBC Morphology Not Reportable 05/25/17 03:31 Dimorphic RBCs Not Reportable 05/25/17 03:31 Polychromasia Not Reportable 05/25/17 03:31 Hypochromasia Not Reportable 05/25/17 03:31 Poikilocytosis Not Reportable 05/25/17 03:31 Anisocytosis 1+ 05/25/17 03:31 Microcytosis Not Reportable 05/25/17 03:31 Macrocytosis Not Reportable 05/25/17 03:31 Spherocytes Not Reportable 05/25/17 03:31 Pappenheimer Bodies Not Reportable 05/25/17 03:31 Sickle Cells Not Reportable 05/25/17 03:31 Target Cells Not Reportable 05/25/17 03:31 Tear Drop Cells Not Reportable 05/25/17 03:31 Ovalocytes Not Reportable 05/25/17 03:31 Helmet Cells Not Reportable 05/25/17 03:31 [place] Bodies Not Reportable 05/25/17 03:31 [place] Rings Not Reportable 05/25/17 03:31 [place] Cells Not Reportable 05/25/17 03:31 Bite Cells Not Reportable 05/25/17 03:31 Crenated Cell Not Reportable 05/25/17 03:31 Elliptocytes Not Reportable 05/25/17 03:31 Acanthocytes (Spur) Not Reportable 05/25/17 03:31 Rouleaux Not Reportable 05/25/17 03:31 Hemoglobin C Crystals Not Reportable 05/25/17 03:31 Schistocytes Not Reportable 05/25/17 03:31 Malaria parasites Not Reportable 05/25/17 03:31 Bobby Bodies Not Reportable 05/25/17 03:31 Hem Pathologist Commnt No 05/25/17 03:31 Sodium 136 mmol/L (137-145) L 05/25/17 03:31 Potassium 3.8 mmol/L (3.6-5.0) 05/25/17 03:31 Chloride 100.0 mmol/L (98-107) 05/25/17 03:31 Carbon Dioxide 22 mmol/L (22-30) 05/25/17 03:31 Anion Gap 18 mmol/L 05/25/17 03:31 BUN 13 mg/dL (7-17) 05/25/17 03:31 Creatinine 0.9 mg/dL (0.7-1.2) 05/25/17 03:31 Estimated GFR > 60 ml/min 05/25/17 03:31 BUN/Creatinine Ratio 14.44 % 05/25/17 03:31 Glucose 159 mg/dL (65-100) H 05/25/17 03:31 Calcium 8.3 mg/dL (8.4-10.2) L 05/25/17 03:31 Total Bilirubin 1.10 mg/dL (0.1-1.2) 05/24/17 10:22 Direct Bilirubin 0.4 mg/dL (0-0.2) H 05/24/17 10:22 Indirect Bilirubin 0.7 mg/dL 05/24/17 10:22 AST 10 units/L (5-40) 05/24/17 10:22 ALT 10 units/L (7-56) 05/24/17 10:22 Alkaline Phosphatase 73 units/L (35-129) 05/24/17 10:22 Troponin T < 0.010 ng/mL (0.00-0.029) 05/22/17 22:55 Total Protein 7.2 g/dL (6.3-8.2) 05/24/17 10:22 Albumin 3.4 g/dL (3.9-5) L 05/24/17 10:22 Albumin/Globulin Ratio 0.9 % 05/24/17 10:22 Lipase 10 units/L (13-60) L 05/22/17 22:55 Urine Color Yellow (Yellow) 05/23/17 00:45 Urine Turbidity Clear (Clear) 05/23/17 00:45 Urine pH 6.0 (5.0-7.0) 05/23/17 00:45 Ur Specific [place] 1.024 (1.003-1.030) 05/23/17 00:45 Urine Protein 30 mg/dl mg/dL (Negative) 05/23/17 00:45 Urine Glucose (UA) 50 mg/dL (Negative) 05/23/17 00:45 Urine Ketones 20 mg/dL (Negative) 05/23/17 00:45 Urine Blood Neg (Negative) 05/23/17 00:45 Urine Nitrite Neg (Negative) 05/23/17 00:45 Urine Bilirubin Neg (Negative) 05/23/17 00:45 Urine Urobilinogen 2.0 mg/dL (<2.0) 05/23/17 00:45 Ur Leukocyte Esterase Neg (Negative) 05/23/17 00:45 Urine WBC (Auto) 1.0 /HPF (0.0-6.0) 05/23/17 00:45 Urine RBC (Auto) 2.0 /HPF (0.0-6.0) 05/23/17 00:45 U Epithel Cells (Auto) 2.0 /HPF (0-13.0) 05/23/17 00:45 Urine Bacteria (Auto) 1+ /HPF (Negative) 05/23/17 00:45 Urine Mucus Few /HPF 05/23/17 00:45
--- NOTE | 2017-05-26 07:42 | Discharge Summary ---
Providers - Providers Date of Admission: 05/23/17 09:19 Date of discharge: 05/27/17 Attending physician: JAN DUNBAR CONSULTS: Surgery Primary care physician: MARINO GRECO MD Hospitalization Condition: Stable Hospital course: Patient discharged by Dr. French without letting hospitalist team know, so he should provide a detailed discharge summary. Disposition: DC-01 TO HOME OR SELFCARE Core Measure Documentation - Palliative Care Palliative Care/ Comfort Measures: Not Applicable - Core Measures Any of the following diagnoses?: none Exam - Constitutional Vitals: Temp Pulse Resp BP Pulse Ox 99.0 F 111 H 20 117/74 98 05/25/17 15:45 05/25/17 15:45 05/25/17 15:45 05/25/17 15:45 05/25/17 03:35 Plan Follow up with: MARINO GRECO MD [Primary Care Provider] - 3-5 Days
--- NOTE | 2017-05-30 10:49 | Query-Infection ---
Dear Raffi Date:___05/30/17 Quality Control Tech Raw Materials/CDS: Too / Madhu Phone#:__[phone] Exercise your independent professional judgment when responding to this query. Questions asked do not imply a particular answer is desired or expected. We greatly appreciate your clarification on this issue. Clinical Documentation States: 57 year old female was admitted on 05/23/17. The hospitalist progress note (Dr. Nugent 05/25/17) states " Assessment and plan: 1. Acute cholecystitis CT abdomen/pelvis showed distended Bladder with subtle cholelithiasis and pericholecystic fluid " The Operative report (Dr. French 05/24/17) states " Findings: Large gallbladder with thickened wall, may be some areas of gangrene at the level of the infundibulum" WBC: 15.7 Temperature: 100 Pulse: 100 Respiratory rate: 30 Medications: IV zosyn Clinical findings show: (please check applicable parameters) Infection, known /suspected, with some of the following indicators; Specify the infection: 3 General parameters [x ] Fever (core temp >38.30C or 100.40F) [ ] Hypothermia (core temp <36C) [ x] Heart rate >90 bpm [ x] Tachypnea: >20 bpm or pCO2 < 32 mmHg [ ] Altered mental status [ ] Significant edema / +ve fluid balance (>20 ml/kg 24 h) [ ] Hyperglycemia (Bl. glucose >110 mg/dl) w/o diabetes Inflammatory parameters [x ] Leukocytosis (white blood cell count >12,000/l) [ ] Leukopenia (white blood cell count <4,000/l) [ ] Bandemia (immature WBC > 10%) [ ] Leucocyte Left Shift [ ] Plasma procalcitonin>2 SD above the normal value Hemodynamic and tissue perfusion parameters [ ] Arterial hypotension(SBP <90 mmHg, MAP <70 mmHg,or a SBP drop >40 mmHg in adults) [ ] Hyperlactatemia (>3 mmol/l) [ ] Anion Gap (> 11mEG/l) [ ] Decreased capillary refill or mottling Organ dysfunction parameters [ ] Arterial hypoxemia (PaO2/FIO2 <300) [ ] Creatinine increase =0.5 mg/dl [ ] Acute oliguria (urine output <0.5 ml | kg |h or 45 mM/l for at least 2 hrs) [ ] Coagulation abnormalities (INR >1.5 or activated partial thromboplastin time >60 s) [ ] Ileus (absent [place] sounds) [ ] Thrombocytopenia (platelet count <100,000/l) [ ] Hyperbilirubinemia (plasma total bilirubin >4 mg/dl) According to the clinical indications above, can Bacteremia be further specified? If so, please indicate below and in your Progress Notes and/ or Discharge Summary. Indicate if the condition was present on admission. PHYSICIAN RESPONSE: [x ] Sepsis [ ] Severe Sepsis [ ] Septic Shock [ ] Septicemia [ ] Sepsis now resolved [ ] SIRS due to non-infectious cause with organ dysfunction [ ] SIRS due to non-infectious cause without organ dysfunction [ ] Other: [ ] Comment/Explanation: Present on Admission: [x ] Yes (Y) [ ] Clinically undeterminable (W) [ ] No (N) [ ] Ruled Out Please also document response in your Progress Notes and/or Discharge Summary and indicate if the condition was present on admission Notes: SIRS/ SIRS WITH ORGAN DYSFUNCTION Systemic inflammatory response syndrome (SIRS) generally refers to the systemic response to trauma/garrido or other insult such as Acute Myocardial Infarction, Acute Pancreatitis, and Major Surgery with symptoms including fever, tachycardia , tachypnea, and leukocytosis (1). BACTEREMIA Presence of viable bacteria in the circulating blood (2). This term is reserved for patients that do not manifest above SIRS response. SEPTICEMIA Generally refers to a systemic disease associated with the presence of pathological microorganisms or toxins in the blood, which can include bacteria, viruses, fungi or other organisms (1). SEPSIS Generally refers to SIRS due infection (1). SEVERE SEPSIS Generally refers to sepsis associated with acute organ dysfunction (1). SEPTIC SHOCK Generally refers to circulatory failure associated with severe sepsis (2), and defined as hypotension or hypoperfusion despite adequate fluid resuscitation (1 hour) (3). REFERENCES: 1. [place] [employer]/Society of Critical Care Medicine Consensus Conference. Definitions for sepsis and organ failure and guidelines for the use of innovative therapies in sepsis. Critical Care Med 1992;20:864 - 74. 2. Tristan y MM, Naheed MP, Marco LESLY, Des E, Adan D, Radu D, Rene J, Brenda SM , Virgil JL, Bryce G; International Sepsis Definitions Conference. 2001 SCCM/ESICM/ACCP/ATS/SIS International Sepsis Definitions Conference. Intensive Care Med. 2002 Apr;29(4):530-8. Epub 2002Dec 28. Review. PubMed PMID:[id number] 3. ICD-9-CM Official Guidelines for Coding and Reporting 4. Medscape Drugs, Diseases and Procedures references 5. [employer] Textbook of Internal Medicine. 18th Edition MTDD
--- NOTE | 2017-05-30 10:58 | Query- Dyspnea ---
Alvaro Ruiz Raffi Date:___05/30/17 Contact Lens Curve Grinder/CDS:____Loren/Madhu Phone#: [phone] Exercise your independent professional judgment when responding to query. Questions asked do not imply a particular answer is desired or expected. We greatly appreciate your clarification on this issue. Clinical Documentation States: 57 year old female was admitted on 05/23/17. The H&P (Dr. Ch) states " This is a 57 year-old female with past medical history of hypertension and hypothyroidism who presents to the emergency department with the complaint of left upper abdominal pain since last night " The Hospitalist progress note (Dr. Nugent 05/25/17) states " Assessment and plan: 1. Acute cholecystitis, 4. Obesity " Clinical Findings Show: Respiratory rate: 30 O2 SAT: 95% O2: 10L/min Please clarify if the patient had any of the following conditions based on the above clinical findings: [x ] Respiratory Failure [x ] Acute [ ] Acute on Chronic [ ] Chronic [ ] Respiratory failure due to trauma [ ] Acute Respiratory Distress Syndrome [ ] Other: [ ] Unable to determine [ ] Comment/Explanation: Present on Admission: [x ] Yes (Y) [ ] Clinically undeterminable (W) [ ] No (N) Please also document response in your Progress Notes and/or Discharge Summary and indicate if the condition was present on admission. IRA
== END 2017-05-25 16:50 | disposition home or self-care (01) | DRG 853 ==
LOC: ED 22:15 → 2B-SURG 05-23 09:19
PROVIDERS: ADMIT Hospitalist; ATTEND Internal Medicine
PROC: 0FT44ZZ Resection of Gallbladder, Percutaneous Endoscopic Approach (ICD-10-PCS; principal; 2017-05-24)
DX: A41.9 Sepsis, unspecified organism (principal); J96.00 Acute respiratory failure, unspecified whether with hypoxia or hypercapnia; K80.00 Calculus of gallbladder with acute cholecystitis without obstruction; I10 Essential (primary) hypertension; E03.9 Hypothyroidism, unspecified; K21.9 Gastro-esophageal reflux disease without esophagitis; E66.9 Obesity, unspecified; Z82.49 Family history of ischemic heart disease and other diseases of the circulatory system; Z68.36 Body mass index [BMI] 36.0-36.9, adult
CPT/HCPCS: 36415; 71275; 74177; 78226; 80048; 80053; 80074; 81001; 83690; 84484; 85007; 85025; 85027; 88304; 93005; 93010; 96365; 96366; 96375; A4217; A9537; J0360; J1100; J1170; J1650; J2250; J2270; J2370; J2405; J2543; J2704; J2710; J7030; Q9967

== ENCOUNTER 2019-04-20 08:50 | Day surgery (SDC) | payer OTHER ==
[2019-04-20] MEDS ORDERED: NACL 0.9% 1000 ML 1,000 ML IV SCH (10:00)
--- NOTE | 2019-04-20 10:10 | Anesthesia Day of Surgery ---
Anesthesia Day of Surgery - Day of Surgery Patient Examined: Yes Patient H&P Reviewed: Yes Patient is NPO: Yes
--- NOTE | 2019-04-20 10:11 | Anesthesia Consultation ---
Anesthesia Consult and Med Hx Date of service: 04/20/19 - Airway Anesthetic Teeth Evaluation: Good ROM Head & Neck: Adequate Mental/Hyoid Distance: Adequate Mallampati Class: Class II Intubation Access Assessment: Probably Good - Pre-Operative Health Status ASA Pre-Surgery Classification: ASA3 Proposed Anesthetic Plan: MAC - Pulmonary Hx Smoking: No Hx Pneumonia: No Hx Sleep Apnea: Yes (CPAP) - Cardiovascular System Hx Hypertension: Yes (HIGH CHOLESTEROL) - Central Nervous System Hx Psychiatric Problems: No - Gastrointestinal Hx Gastroesophageal Reflux Disease: Yes - Endocrine Hx Hypothyroidism: Yes - Other Systems Hx Obesity: Yes (BMI 36)
[2019-04-20] MEDS ORDERED: VERSED ONE (10:16)
[2019-04-20] MEDS ORDERED: DIPRIVAN 10 MG/ML IV ONE ×2 (10:16)
--- NOTE | 2019-04-20 10:37 | Procedure Note ---
Date of procedure: 04/20/19 Pre-op diagnosis: Colon Polyp Screening Post-op diagnosis: other (No Colon Polyps noted/ Solitary,Moderately Large Cecal Diverticuli/ Minor,Internal Hemorrhoids) Procedure: Colonoscopy Anesthesia: MAC Surgeon: PALMER BHATTI Estimated blood loss: none Pathology: none Condition: stable Disposition: same day (Encourage fiber intake. Resume home medication and follow up in 1 to 2 weeks ([phone]).)
--- NOTE | 2019-04-20 10:51 | Operative Report ---
PROCEDURE PERFORMED: Colonoscopy. INDICATIONS: A 59-year-old -[place] female with an underlying history of hypothyroidism and hypertension. Colonoscopy was done as part of colon polyp screening. DESCRIPTION OF PROCEDURE: Procedure was done after getting informed consent with MAC anesthesia. Initial rectal exam was unremarkable. Instrument was passed through the rectum onto the cecum, which was identified by the ileocecal valve and the appendiceal orifice. Visualization was fair to good. The scope was retroflexed in the cecum and then withdrawn up after the retroflexion to the hepatic flexure and reintroduced. There were no additional pathology was noted other than for a solitary moderately large cecal diverticula and the cecum, ascending colon, transverse colon, descending colon and sigmoid did not show any additional pathology. There were no polyps noted and the rectum showed minor internal hemorrhoids on the retroverted view. There was no bleeding associated with the procedure. No biopsies associated with the procedure. No complications associated with the procedure. ASSESSMENT: Colon polyp screening, no colon polyps noted, solitary moderately large cecal diverticulum, minor internal hemorrhoid. PLAN: To encourage the patient to take fiber supplements. Follow up in the office in 1-2 weeks' time and resume home medication and encourage fiber supplements. The patient's procedure was done in the GI lab with assistance of anesthesia and in the presence and with the assistance of AMAYA Gardner, and frances Rain. [facility]# [id number] GUERDA/ROMERO
[2019-04-20 11:29] VITALS: BP 138/79
[2019-04-20] MEDS ORDERED: XYLOCAINE MPF 2% ONE (12:00)
== END 2019-04-20 08:51 | disposition home or self-care (01) ==
LOC: GIO 08:50
DX: Z12.11 Encounter for screening for malignant neoplasm of colon (principal); K64.8 Other hemorrhoids; K57.30 Diverticulosis of large intestine without perforation or abscess without bleeding; E03.9 Hypothyroidism, unspecified; I10 Essential (primary) hypertension; G47.30 Sleep apnea, unspecified; K21.9 Gastro-esophageal reflux disease without esophagitis; E66.9 Obesity, unspecified; Z68.36 Body mass index [BMI] 36.0-36.9, adult; Z79.899 Other long term (current) drug therapy; Z90.49 Acquired absence of other specified parts of digestive tract; Z98.890 Other specified postprocedural states
CPT/HCPCS: 45378; J2250; J2704; J7030